=== PATIENT | male | born 1965 | race Caucasian/White ===

== ENCOUNTER 2021-08-02 20:38 | Inpatient (IN) ==
[2021-08-02] MEDS ORDERED: TORADOL 30 MG VIAL IVP ONE (21:04)
[2021-08-02] MEDS ORDERED: ZOFRAN INJ 4 MG VIAL IVP ONE (21:04)
[2021-08-02] MEDS ORDERED: ZOFRAN INJ 4 MG VIAL ONE (21:05)
[2021-08-02] MEDS ORDERED: TORADOL 30 MG VIAL ONE (21:05)
[2021-08-02 21:12] LABS: BASOPHILS % (AUTO) 0.4 % (0.2-1.0); EOSINOPHILS % (AUTO) 0.3 % (0.9-2.9); HEMATOCRIT 49.4 % (42.0-54.0); HEMOGLOBIN 16.8 g/dL (13.5-18.0); LYMPHOCYTES # (AUTO) 1.3 X10^3/uL (1.3-2.9); MEAN CORPUSCULAR HEMOGLOBIN 28.9 pg (27.0-34.0); MEAN CORPUSCULAR VOLUME 84.9 fL (80.0-100.0); MEAN PLATELET VOLUME 9.1 fL (7.4-11.0); MONOCYTES # (AUTO) 0.8 x10^3/uL (0.3-0.8); MONOCYTES % (AUTO) 5.9 % (0.0-13.0); NEUTROPHILS # (AUTO) 10.9 x10^3/uL (2.2-4.8); NEUTROPHILS % (AUTO) 83.4 % (42.0-75.0); RED BLOOD COUNT 5.82 X10^6/uL (4.7-6.0); RED CELL DISTRIBUTION WIDTH 14.5 % (11.6-16.5); WHITE BLOOD COUNT 13.1 X10^3/uL (3.6-10.0)
[2021-08-02 21:21] LABS: ALANINE AMINOTRANSFERASE 29 Units/L (12-78); ALBUMIN 3.5 g/dL (3.4-5.0); ALKALINE PHOSPHATASE 99 Units/L (46-116); ASPARTATE AMINO TRANSFERASE 17 Units/L (15-37); BLOOD UREA NITROGEN 12 mg/dL (7-18); CALCIUM 8.2 mg/dL (8.5-10.1); CARBON DIOXIDE 30.5 mmol/L (21-32); CHLORIDE 105 mmol/L (98-107); COR NA(FOR HYPERGLY) 141 mmol/L (136-145); SODIUM 141 mmol/L (136-145); TOTAL PROTEIN 7.2 g/dL (6.4-8.2); eGFR NON BLACK RACES 56 (>60)
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
[2021-08-02 22:04] LABS: AMYLASE 81 Units/L (25-115); LIPASE 74 Units/L (73-393)
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
[2021-08-03] MEDS ORDERED: NS 1,000 ML IV 1,000 ML ONE (00:08)
[2021-08-03] MEDS: NS 1,000 ML IV 1,000 ML IV SCH ×4 (00:12→23:45)
[2021-08-03] MEDS ORDERED: MIRALAX POWDER (1 DOSE 17 G) ONE (00:41)
[2021-08-03] MEDS: MIRALAX POWDER (1 DOSE 17 G) PO SCH ×2 (00:42→21:37)
[2021-08-03 01:02] VITALS: BMI 28.8
[2021-08-03] MEDS: MORPHINE SULFATE INJ 2 MG INJ IVP PRN ×5 (02:54→22:40)
[2021-08-03 05:30] LABS: BASOPHILS # (AUTO) 0.1 X10^3/uL (0.0-0.1); BASOPHILS % (AUTO) 0.6 % (0.2-1.0); EOSINOPHILS # (AUTO) 0.1 x10^3/uL (0.0-0.2); EOSINOPHILS % (AUTO) 0.5 % (0.9-2.9); HEMATOCRIT 45.1 % (42.0-54.0); HEMOGLOBIN 15.4 g/dL (13.5-18.0); LYMPHOCYTES # (AUTO) 1.4 X10^3/uL (1.3-2.9); LYMPHOCYTES % (AUTO) 13.5 % (21.0-51.0); MEAN CORPUSCULAR HEMOGLOBIN 28.9 pg (27.0-34.0); MEAN CORPUSCULAR HGB CONC 34.2 g/dL (33.0-35.0); MEAN CORPUSCULAR VOLUME 84.6 fL (80.0-100.0); MONOCYTES # (AUTO) 0.7 x10^3/uL (0.3-0.8); MONOCYTES % (AUTO) 6.8 % (0.0-13.0); NEUTROPHILS # (AUTO) 7.9 x10^3/uL (2.2-4.8); NEUTROPHILS % (AUTO) 78.6 % (42.0-75.0); RED BLOOD COUNT 5.34 X10^6/uL (4.7-6.0); RED CELL DISTRIBUTION WIDTH 14.4 % (11.6-16.5); WHITE BLOOD COUNT 10.1 X10^3/uL (3.6-10.0)
[2021-08-03 05:45] LABS: ALANINE AMINOTRANSFERASE 23 Units/L (12-78); ALKALINE PHOSPHATASE 83 Units/L (46-116); ASPARTATE AMINO TRANSFERASE 18 Units/L (15-37); BLOOD UREA NITROGEN 11 mg/dL (7-18); CALCIUM 7.6 mg/dL (8.5-10.1); CARBON DIOXIDE 25.1 mmol/L (21-32); CHLORIDE 107 mmol/L (98-107); COR CA(FOR HYPOALB) 8.4 mg/dL (8.5-10.1); CREATININE 1.08 mg/dL (0.70-1.30); SODIUM 141 mmol/L (136-145); TOTAL PROTEIN 6.3 g/dL (6.4-8.2); eGFR NON BLACK RACES > 60 (>60)
[2021-08-03 13:49] LABS: BILIRUBIN,URINE NEGATIVE (NEGATIVE); BLOOD/HEMOGLOBIN,URINE 1+ (NEGATIVE); GLUCOSE, URINE NEGATIVE (NEGATIVE); KETONES,URINE 2+ (NEGATIVE); LEUKOCYTE ESTERASE ,URINE NEGATIVE (NEGATIVE); NITRITES,URINE NEGATIVE (NEGATIVE); PROTEIN,URINE 1+ (NEGATIVE); UROBILINOGEN,URINE NORMAL (NORMAL)
[2021-08-03 14:14] LABS: APPEARANCE,URINE CLEAR (CLEAR); COLOR,URINE YELLOW (YELLOW); RBC,URINE 0-2 /HPF (0-3); SQUAMOUS EPITHELIAL CELL,UR RARE /HPF (NEGATIVE)
[2021-08-03 14:15] LABS: BACTERIA,URINE NEGATIVE /HPF (NEGATIVE)
[2021-08-03] MEDS ORDERED: GOLYTELY or GAVILYTE or Equivalent PO ONE (14:43)
[2021-08-03] MEDS: GOLYTELY or GAVILYTE or Equivalent PO SCH (14:57)
[2021-08-03] MEDS ORDERED: APRESOLINE INJ 20 MG VIAL IVP PRN (23:00)
[2021-08-03] MEDS ORDERED: CHRONULAC PO SCH (23:00)
[2021-08-04] MEDS: NS 1,000 ML IV 1,000 ML IV SCH ×4 (01:47→18:35)
[2021-08-04] MEDS: ZOFRAN INJ 4 MG VIAL IVP PRN ×3 (02:35→20:43)
[2021-08-04] MEDS: MORPHINE SULFATE INJ 2 MG INJ IVP PRN ×3 (04:09→20:43)
[2021-08-04] MEDS: CHRONULAC PO SCH ×3 (05:43→18:35)
[2021-08-04 06:01] LABS: BASOPHILS % (AUTO) 0.3 % (0.2-1.0); EOSINOPHILS % (AUTO) 0.1 % (0.9-2.9); HEMATOCRIT 52.2 % (42.0-54.0); LYMPHOCYTES # (AUTO) 0.7 X10^3/uL (1.3-2.9); LYMPHOCYTES % (AUTO) 4.9 % (21.0-51.0); MEAN CORPUSCULAR HEMOGLOBIN 28.5 pg (27.0-34.0); MEAN CORPUSCULAR HGB CONC 33.7 g/dL (33.0-35.0); MEAN CORPUSCULAR VOLUME 84.4 fL (80.0-100.0); MEAN PLATELET VOLUME 9.4 fL (7.4-11.0); MONOCYTES # (AUTO) 0.7 x10^3/uL (0.3-0.8); MONOCYTES % (AUTO) 4.9 % (0.0-13.0); NEUTROPHILS # (AUTO) 12.5 x10^3/uL (2.2-4.8); NEUTROPHILS % (AUTO) 89.8 % (42.0-75.0); RED BLOOD COUNT 6.18 X10^6/uL (4.7-6.0); RED CELL DISTRIBUTION WIDTH 14.7 % (11.6-16.5); WHITE BLOOD COUNT 13.9 X10^3/uL (3.6-10.0)
[2021-08-04 06:16] LABS: HEMOGLOBIN 17.6 g/dL (13.5-18.0)
[2021-08-04 06:17] LABS: ALANINE AMINOTRANSFERASE 24 Units/L (12-78); ALBUMIN 3.1 g/dL (3.4-5.0); ALKALINE PHOSPHATASE 91 Units/L (46-116); ASPARTATE AMINO TRANSFERASE 19 Units/L (15-37); BLOOD UREA NITROGEN 11 mg/dL (7-18); CARBON DIOXIDE 24.2 mmol/L (21-32); CHLORIDE 106 mmol/L (98-107); COR CA(FOR HYPOALB) 8.7 mg/dL (8.5-10.1); COR NA(FOR HYPERGLY) 140 mmol/L (136-145); CREATININE 1.07 mg/dL (0.70-1.30); SODIUM 140 mmol/L (136-145); TOTAL PROTEIN 6.7 g/dL (6.4-8.2); eGFR NON BLACK RACES > 60 (>60)
--- NOTE | 2021-08-04 08:28 | DR.H&P ---
H&P - History & Physical for Day of: H&P Date: 08/02/21 - Chief Complaint Chief Complaint: HAVING PAIN IN BOTTOM OF STOMACH THAT HAS BEEN GOING ON SINCE LASTNIGHT - History of Present Illness History of Present Illness: PT IS 56 MALE ER ADMISSION WITH CO SUDDEN ONSET OF LOWER ABDOMINAL PAIN WITHOUT FEVER. PT CO NAUSEA, DENIES DIARRHEA. PT HAD CT ABD/PELVIS IN ER WITH POSSIBLE SMALL BOWEL OBSTRUCTION. PT ADMITTED FOR TREATMENT AND EVALUATION OF ACUTE ILLNESS. - Past Medical History Past Medical History: MT, Hypertension, COPD - Past Surgical History Surgical History: Appendectomy, Bowel Resection, Other - Family History Family Medical History: MT, Hypertension - Social History Does patient currently use any type of tobacco product: Yes Have you used tobacco products in the last 12 months: Yes Type of Tobacco Use: Cigarettes Does any household member use tobacco: Yes Alcohol Use: None Drug Use: None - Medications Home Medications: ciprofloxacin Allergy (Verified 08/02/21 20:44) - Review of Systems Constitutional: Weakness. denies: Fever Eyes: No Symptoms Reported ENT: No Symptoms Reported Respiratory: No Symptoms Reported Cardiovascular: No Symptoms Reported Gastrointestinal: Nausea, Abdominal Pain Genitourinary: No Symptoms Reported Musculoskeletal: No Symptoms Reported Skin: No Symptoms Reported Neurological: Weakness - Physical Exam Vital Signs: Temperature 97.4 F Pulse Rate [Bilateral Radial] 79 Pulse Rate 87 Respiratory Rate 20 Blood Pressure [Left Arm] 178/84 Blood Pressure 138/94 O2 Sat by Pulse Oximetry 95 Oriented: Normal Eyes: Normal Ear: Normal Nose: Normal Throat: Normal Respiratory: RLL Diminished, LLL Diminished Cardiovascular: Normal : Normal Tenderness: Diffuse Skin: Normal Musculoskeletal: Back:Lumbar Psychiatric: Normal Speech Pattern: Clear - Assessment/Plan (1) Small bowel obstruction, partial Status: Acute Plan: ADMIT, NPO. PAIN AND NAUSEA CONTROL. IV HYDRATION, REPEAT AM ABD SERIES. VERIFY HOME MEDICATION (2) Hypertension Status: Acute (3) Chronic, continuous use of opioids Status: Acute - Allergies Allergies/Adverse Reactions: Allergies Allergy/AdvReac Type Severity Reaction Status Date / Time ciprofloxacin Allergy Verified 08/02/21 20:44
[2021-08-04] MEDS ORDERED: PHENERGAN INJ 25 MG IM ONE (14:54)
[2021-08-04] MEDS ORDERED: BENADRYL INJ 50 MG VIAL ONE (15:42)
[2021-08-04] MEDS ORDERED: ATIVAN INJ 2 MG VIAL ONE (15:43)
[2021-08-04] MEDS ORDERED: BENADRYL INJ 50 MG VIAL IVP ONE (15:55)
[2021-08-04] MEDS ORDERED: ATIVAN INJ 2 MG VIAL IVP ONE (16:00)
[2021-08-04] MEDS ORDERED: XYLOCAINE VISCOUS MT ONE (17:29)
[2021-08-04] MEDS: GOLYTELY or GAVILYTE or Equivalent PO SCH (18:34)
[2021-08-04] MEDS: MIRALAX POWDER (1 DOSE 17 G) PO SCH (22:43)
[2021-08-05] MEDS ORDERED: PHENERGAN INJ 25 MG IM ONE (00:14)
[2021-08-05] MEDS: NS 1,000 ML IV 1,000 ML IV SCH ×6 (01:00→16:16)
[2021-08-05] MEDS: CHRONULAC PO SCH ×5 (01:00→17:44)
[2021-08-05] MEDS: PHENERGAN INJ 25 MG IM PRN ×4 (01:04→22:40)
[2021-08-05 05:32] LABS: BASOPHILS % (AUTO) 0.3 % (0.2-1.0); EOSINOPHILS % (AUTO) 0.1 % (0.9-2.9); HEMATOCRIT 46.9 % (42.0-54.0); HEMOGLOBIN 15.8 g/dL (13.5-18.0); LYMPHOCYTES # (AUTO) 0.8 X10^3/uL (1.3-2.9); LYMPHOCYTES % (AUTO) 8.1 % (21.0-51.0); MEAN CORPUSCULAR HEMOGLOBIN 28.7 pg (27.0-34.0); MEAN CORPUSCULAR HGB CONC 33.7 g/dL (33.0-35.0); MEAN CORPUSCULAR VOLUME 85.2 fL (80.0-100.0); NEUTROPHILS % (AUTO) 81.5 % (42.0-75.0); RED BLOOD COUNT 5.51 X10^6/uL (4.7-6.0); RED CELL DISTRIBUTION WIDTH 14.6 % (11.6-16.5); WHITE BLOOD COUNT 9.8 X10^3/uL (3.6-10.0)
[2021-08-05 05:39] LABS: ALANINE AMINOTRANSFERASE 39 Units/L (12-78); ALBUMIN 3.1 g/dL (3.4-5.0); ALKALINE PHOSPHATASE 91 Units/L (46-116); ASPARTATE AMINO TRANSFERASE 28 Units/L (15-37); BLOOD UREA NITROGEN 16 mg/dL (7-18); CALCIUM 8.1 mg/dL (8.5-10.1); CARBON DIOXIDE 30.2 mmol/L (21-32); CHLORIDE 106 mmol/L (98-107); COR CA(FOR HYPOALB) 8.8 mg/dL (8.5-10.1); CREATININE 1.33 mg/dL (0.70-1.30); SODIUM 145 mmol/L (136-145); TOTAL PROTEIN 6.6 g/dL (6.4-8.2); eGFR NON BLACK RACES 59 (>60)
[2021-08-05] MEDS: ZOFRAN INJ 4 MG VIAL IVP PRN ×3 (05:45→20:10)
[2021-08-05] MEDS: MORPHINE SULFATE INJ 2 MG INJ IVP PRN ×2 (05:45→20:10)
[2021-08-05] MEDS: GOLYTELY or GAVILYTE or Equivalent PO SCH (14:23)
[2021-08-05 19:48] VITALS: BP 171/93
[2021-08-05] MEDS: MIRALAX POWDER (1 DOSE 17 G) PO SCH (21:18)
--- NOTE | 2021-08-19 14:19 | PCM.DCPLAN ---
Discharge Plan - Discharge Plan Hospital Course: Admit date 08/02/21 Discharge date 08/05/21 DOS 08/05/21 Admit diagnosis(1) Small bowel obstruction, partial (2) Hypertension (3) Chronic, continuous use of opioids (4) Schizophrenia (5) Bipolar disorder Discharge diagnosis Same Hospital Course Patient is a 56 yo male who is being admitted due to abdominal pain. Reports nausea, denies vomiting. PT HAD CT ABD/PELVIS IN ER WITH POSSIBLE SMALL BOWEL OBSTRUCTION. PT ADMITTED FOR TREATMENT AND EVALUATION OF ACUTE ILLNESS. Patient was NPO . Symptoms did not improved. Patient continued to have abdominal pain and nausea and vomiting. NGT was attempted however unsuccessful. Patient was transferred to tertiary center due to obstruction. Greater than 35 minutes spent on discharge Disposition: XF [facility] Condition: Stable Health Concerns: Post Hospitalization: new medications and changes needed to prevent readmission or further decline. Pt educated and given instructions on all concerns. Plan of Treatment: Continue with present treatment and follow up plan. Pt is to keep follow up appointment as instructed and take medications as ordered. Prescriptions: No Action aspirin 81 mg Tablet 81 mg PO DAILY bisoprolol fumarate 5 mg Tablet 2.5 mg PO DAILY budesonide-formoterol [Symbicort] 160-4.5 mcg/actuation Hfa Aerosol Inhaler 1 puff INHALATION DAILY buspirone 10 mg Tablet 10 mg PO BID citalopram 40 mg Tablet 40 mg PO DAILY cyclobenzaprine 10 mg Tablet 10 mg PO BID PRN furosemide 20 mg Tablet 20 mg PO DAILY metoprolol tartrate 25 mg Tablet 25 mg PO DAILY quetiapine 25 mg Tablet 25 mg PO DAILY ramipril 5 mg Capsule 5 mg PO DAILY
== END 2021-08-05 22:45 | disposition short-term general hospital (02) | DRG 390 ==
LOC: ER 20:38 → MED/SURG 23:55
PROVIDERS: ADMIT Internal Medicine; ATTEND Internal Medicine